=== PATIENT | male | born 1960 | race Caucasian/White ===

== ENCOUNTER 2020-10-06 01:36 | Outpatient (CLI) | payer OTHER, SELFPAY ==
[2020-10-06 21:18] LABS: SARS-CoV-2 RNA PCR Negative
== END 2020-10-06 01:37 | disposition home or self-care (01) ==
LOC: ANHCOVIDDT 01:37
PROVIDERS: PCP Family Medicine; Visit Provider Internal Medicine Gastroenterology
DX: Z01.812 Encounter for preprocedural laboratory examination (principal); Z20.828 Contact with and (suspected) exposure to other viral communicable diseases
CPT/HCPCS: 87635; C9803; U0003

== ENCOUNTER 2020-10-10 01:37 | Day surgery (SDC) | payer OTHER, SELFPAY ==
[2020-10-04 14:45] VITALS: BMI 37.2
[2020-10-10 06:24] VITALS: BP 116/59; PULSE 89; RESP 16; TEMP 36.7; O2SAT 96; BMI 37.4
[2020-10-10] MEDS: LACTATED RINGERS 1,000 ML 150 ML IV CONT ×2 (06:38→07:56)
--- NOTE | 2020-10-10 06:47 | WPDANESEPPF ---
Anes - Initial Pre Proc Eval Procedure: Operation Date: 10/10/20 07:30 Proposed Procedures p Screening Colonoscopy - Juan R Pablo MD Date/Time: 10/10/20 06:47 Surgeon: Juan R Pablo MD Pre Op Diagnosis: Neoplasm Screening Patient Data Age: 59 Gender: M Height: 1.85 m Weight: 128.6 kg Last Vital Signs Temp 36.7 C 10/10/20 06:24 Pulse 89 10/10/20 06:24 Resp 16 10/10/20 06:24 BP 116/59 L 10/10/20 06:24 Pulse Ox 96 10/10/20 06:24 Allergies Allergy/AdvReac Type Severity Reaction Status Date / Time No Known Allergies Allergy Verified 10/10/20 06:23 Home Medications Medication Instructions Recorded Confirmed Type carvedilol phosphate 40 mg 40 mg PO DAILY #90 cap 10/26/19 10/04/20 Rx capsule,[id number] multiphase pen needle, diabetic 32 gauge x #200 each 01/02/20 Rx allopurinol 100 mg tablet 100 mg PO DAILY #90 tablet 03/26/20 10/04/20 Rx lancets #102 each 04/09/20 Rx blood sugar diagnostic #100 each 04/17/20 Rx tamsulosin 0.4 mg capsule 0.4 mg PO DAILY #90 cap 04/24/20 10/04/20 Rx atorvastatin 10 mg tablet See Rx Instructions .ROUTE 04/30/20 10/04/20 Rx .COMPLEX #90 tablet chlorthalidone 25 mg tablet 25 mg PO DAILY #90 tablet 05/23/20 10/04/20 Rx dulaglutide 0.75 mg/0.5 mL 0.75 mg SUB-Q WEEKLY #2 ml 08/07/20 10/04/20 Rx subcutaneous pen injector metformin 500 mg tablet,extended 2,000 mg PO QPM #360 tablet 08/13/20 10/04/20 Rx release 24hr insulin degludec 200 unit/mL (3 40 unit SUB-Q DAILY #18 ml 08/14/20 10/04/20 Rx mL) subcutaneous pen polyethylene glycol 3350 17 gram 238 g PO ONCE #1 each 08/15/20 Rx oral powder packet lisinopril 40 mg tablet 40 mg PO DAILY #90 tablet 09/05/20 10/04/20 Rx loratadine [Claritin] 10 mg PO DAILY 10/04/20 10/04/20 History Patient hx anesthesia problems: none Family hx anesthesia problems: none PMFSH Past Medical History Medical History (Updated 10/10/20 @ 06:48 by Dylan Simth MD) Benign prostatic hyperplasia with urinary frequency Controlled diabetes mellitus Dyslipidemia Essential (primary) hypertension History of atrial flutter Obesity Obstructive sleep apnea (adult) (pediatric) Single current episode of major depressive disorder Surgical History Surgical History History of pilonidal cyst History of retinal detachment Family History Family History Father Hypertension Family history of heart disease in male family member before age 55 Sibling Cerebrovascular accident Mother Family history of diabetes mellitus in first degree relative Social History Social History Smoking status: Never smoker Second hand tobacco smoke exposure: No Alcohol intake: current Drinks per week: 1 Substance use: never Substance use type: does not use Living arrangements: with family Gender identity (if verbalized by the patient): Male Spiritual care concerns: No Anes - Eval Final PreProcedure Day of Procedure 10/10/20 06:47 Patient weight: obese Heart: regular rate and rhythm Lungs: clear to auscultation and normal air movement Airway: Mallampati scale class II Neurological: alert and oriented Last oral intake: >/= 8 hours ASA classification: III Emergent: no Anesthetic plan: proceed Anesthesia type and monitoring: general GIVS Informed Consent: The patient's anesthetic plan and its attendant risks and benefits were discussed with the patient/family/POA. Questions were solicited and answers provided to the satisfaction of the patient/family/POA.
[2020-10-10 07:15] LABS: Glucose Point of Care 135 (65-105)
--- NOTE | 2020-10-10 07:36 | PM.HPGS ---
History of Present Illness History of Present Illness Consent: Risks, benefits, and alternatives have been discussed and questions answered. Patient agrees to proceed with procedure. Chief complaint: Neoplasm Screening Narrative: Bruce Vasquez is a 59 year old male here for screening colonoscopy, last one 10 years ago. Review of Systems Constitutional: Constitutional: Denies headache(s) and Denies weakness Eyes: Eyes: Denies blurry vision ENT: Reports Normal hearing present, Denies headache(s) and Denies neck pain Cardiovascular: Cardiovascular: Denies chest pain and Denies dyspnea Respiratory: Respiratory: Denies dyspnea Gastrointestinal: Gastrointestinal: Reports no additional gastrointestinal complaints Genitourinary: Genitourinary: Denies dysuria Musculoskeletal: Musculoskeletal: Denies neck pain Integumentary/Breasts: Skin/Breast: Denies dry skin Neurologic: Reports Normal hearing present, Denies headache(s) and Denies weakness Psychiatric: Psychiatric: Denies anxiety Endocrine: Endocrine: Denies change in body appearance Hematologic/Lymphatic: Hematologic/Lymphatic: Denies easy bleeding Allergic/Immunologic: Allergic/Immunologic: Denies urticaria PMFSH Past Medical History Medical History (Updated 10/10/20 @ 07:37 by Juan R Pablo MD) Benign prostatic hyperplasia with urinary frequency Colon cancer screening Controlled diabetes mellitus Dyslipidemia Essential (primary) hypertension History of atrial flutter Obesity Obstructive sleep apnea (adult) (pediatric) Single current episode of major depressive disorder Surgical History Surgical History History of pilonidal cyst History of retinal detachment Family History Family History Father Hypertension Family history of heart disease in male family member before age 55 Sibling Cerebrovascular accident Mother Family history of diabetes mellitus in first degree relative Social History Social History Smoking status: Never smoker Second hand tobacco smoke exposure: No Alcohol intake: current Drinks per week: 1 Substance use: never Substance use type: does not use Living arrangements: with family Gender identity (if verbalized by the patient): Male Spiritual care concerns: No Meds Home Medications and Allergies Home Medications Medication Instructions Recorded Confirmed Type carvedilol phosphate 40 mg 40 mg PO DAILY #90 cap 10/26/19 10/04/20 Rx capsule,ext.[id number] multiphase pen needle, diabetic 32 gauge x #200 each 01/02/20 Rx 5/32 allopurinol 100 mg tablet 100 mg PO DAILY #90 tablet 03/26/20 10/04/20 Rx lancets #102 each 04/09/20 Rx blood sugar diagnostic #100 each 04/17/20 Rx tamsulosin 0.4 mg capsule 0.4 mg PO DAILY #90 cap 04/24/20 10/04/20 Rx atorvastatin 10 mg tablet See Rx Instructions .ROUTE 04/30/20 10/04/20 Rx .COMPLEX #90 tablet chlorthalidone 25 mg tablet 25 mg PO DAILY #90 tablet 05/23/20 10/04/20 Rx dulaglutide 0.75 mg/0.5 mL 0.75 mg SUB-Q WEEKLY #2 ml 08/07/20 10/04/20 Rx subcutaneous pen injector metformin 500 mg tablet,extended 2,000 mg PO QPM #360 tablet 08/13/20 10/04/20 Rx release 24hr insulin degludec 200 unit/mL (3 40 unit SUB-Q DAILY #18 ml 08/14/20 10/04/20 Rx mL) subcutaneous pen polyethylene glycol 3350 17 gram 238 g PO ONCE #1 each 08/15/20 Rx oral powder packet lisinopril 40 mg tablet 40 mg PO DAILY #90 tablet 09/05/20 10/04/20 Rx loratadine [Claritin] 10 mg PO DAILY 10/04/20 10/04/20 History Allergies Allergy/AdvReac Type Severity Reaction Status Date / Time No Known Allergies Allergy Verified 10/10/20 06:23 Vital Signs Vital Signs - 24 hr 10/10/20 06:24 Temperature 98.1 F Pulse Rate 89 Respiratory Rate 16 Blood Pressure 116/59 L Pulse Oximetry 96 Ex
[2020-10-10 08:01] VITALS: BP 93/56; PULSE 73; RESP 16; O2SAT 95
[2020-10-10 08:11] VITALS: BP 91/66; PULSE 74; RESP 16; O2SAT 98
[2020-10-10 08:21] VITALS: BP 108/64; PULSE 70; RESP 16; O2SAT 100
== END 2020-10-10 08:34 | disposition home or self-care (01) ==
PROVIDERS: PCP Family Medicine; Visit Provider Internal Medicine Gastroenterology
PROC: 0DJD8ZZ Inspection of Lower Intestinal Tract, Via Natural or Artificial Opening Endoscopic (ICD-10-PCS; CPT 45378; principal; 2020-10-10 07:30)
DX: Z12.11 Encounter for screening for malignant neoplasm of colon (principal); D12.2 Benign neoplasm of ascending colon; K57.30 Diverticulosis of large intestine without perforation or abscess without bleeding; E11.9 Type 2 diabetes mellitus without complications; I10 Essential (primary) hypertension; N40.1 Benign prostatic hyperplasia with lower urinary tract symptoms; R35.0 Frequency of micturition; G47.33 Obstructive sleep apnea (adult) (pediatric); F32.9 Major depressive disorder, single episode, unspecified; Z79.4 Long term (current) use of insulin; Z79.84 Long term (current) use of oral hypoglycemic drugs; E66.9 Obesity, unspecified; Z68.37 Body mass index [BMI] 37.0-37.9, adult
CPT/HCPCS: 45385; 87635; 88305; C9803; J7120; U0003

== ENCOUNTER 2021-06-06 10:49 | Outpatient (CLI) | payer OTHER, SELFPAY ==
--- NOTE | ~2021-06-06 | XR_ITS ---
XR foot LT min 3V DATE: 06/06/2021 11:04 INDICATION: Left foot pain. Bruising at ball of foot. TECHNIQUE: 4 views COMPARISON: None FINDINGS: Moderate plantar calcaneal enthesopathy. Osteoarthritic change at the tibiotalar joint. Mild osteoarthritis at the first metatarsophalangeal joint. No fracture, dislocation, periosteal reaction or bone destruction. 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
== END 2021-06-06 10:50 | disposition home or self-care (01) ==
LOC: ANHIMG 10:52
PROVIDERS: PCP Family Medicine; Visit Provider Nurse Practitioner Family
DX: M77.32 Calcaneal spur, left foot (principal); M19.072 Primary osteoarthritis, left ankle and foot
CPT/HCPCS: 73630

== ENCOUNTER 2022-05-01 23:55 | Inpatient (IN) | payer OTHER, SELFPAY ==
--- NOTE | ~2022-05-01 | XR_ITS ---
EXAMINATION: XR chest 2V DATE: 05/02/2022 00:49 INDICATION: Palpitations. TECHNIQUE: Frontal and lateral views of the chest were obtained. COMPARISON: Chest 2 views 01/30/2017 FINDINGS: There is mild atelectasis in left lower lung zone. No pleural effusion or pneumothorax. The heart size is normal. IMPRESSION: 1. Mild atelectasis in left lower lung zone. Reviewed, dictated and finalized at location A.
[2022-05-01 23:56] VITALS: BP 126/78; PULSE 69; RESP 18; TEMP 36.6; O2SAT 98
[2022-05-02] VITALS (20 sets, daily range): BP systolic 103–153; BP diastolic 64–80; PULSE 69–132; RESP 13–20; TEMP 36.1–37.2; O2SAT 94–97; BMI 37.0; BMI 37.2
--- NOTE | 2022-05-02 | ECHO_ITS ---
Patient Info Name: Bruce Vasquez Age: 61 years : 1960 Gender: Male Ht: 73 in Wt: 280 lbs BSA: 2.60 m2 HR: 96 bpm BP: 153 / 66 mmHg Heart Rhythm: Atrial Fibrillation Technical Quality: Fair Exam Date: 05/02/2022 7:30 AM Exam Location: [facility] Patient Status: Outpatient Admit Date: 05/02/2022 Staff Ordering Physician: Florencia Guerrier DO Forester Aide: Lisha Ritter RDCS Attending Provider: Florencia Guerrier DO Referring Physician: Chey PATTERSON; Exam Type: CA echo dop color flow w con Study Info Indications - afib Complete two-dimensional, color flow and Doppler transthoracic echocardiogram is performed with contrast to opacify the left ventricle and to improve the deliniation of the left ventricle endocardial borders. Contrast/Agitated Saline Contrast/Ag. Saline: Definity Amount: 3.00 ml Administered By: Lisha Ritter RDCS Existing IV Access: Yes IV Access Condition: patent with no signs of infiltration Summary 1. Definity contrast used to improve visualization. 2. Left ventricular systolic function is normal, estimated at 65-70%. 3. Left atrial chamber dimension is normal. 4. Right atrial chamber dimension is normal. 5. There is trace mitral valve regurgitation. Left Ventricle Left ventricular chamber dimension is normal. Left ventricular systolic function is normal, estimated at 65-70%. The left ventricular diastolic function is normal. Definity contrast used to improve visualization. Right Ventricle Right ventricular chamber dimension is normal. Left Atria Left atrial chamber dimension is normal. Right Atria Right atrial chamber dimension is normal. Aortic Valve The aortic valve is normal. Pulmonic Valve The pulmonic valve is not well visualized. Mitral Valve The mitral valve has normal leaflets. There is trace mitral valve regurgitation. The mitral valve annulus is mildly calcified. Tricuspid Valve The tricuspid valve leaflets are normal. Pericardium/Pleural The pericardium appears normal. Aorta The aortic root size at the sinus of Valsalva is normal. Left Ventricular Outflow Tract Name Value Normal LVOT 2D LVOT Diameter 2.12 cm LVOT Doppler LVOT Peak Gradient 6 mmHg LVOT Mean Gradient 3 mmHg LVOT VTI 20.54 cm LVOT VTI/AV VTI Ratio 0.85 LVOT Stroke Volume 72.52 ml LVOT CO 6.87 l/min LVOT CI 2.64 L/min/m2 Pulmonic Valve Name Value Normal RVOT Doppler RVOT Peak Gradient 1 mmHg PV Doppler PV Peak Gradient
--- NOTE | 2022-05-02 00:01 | ECG_ITS ---
Measurements Intervals [place] Rate: 132 P: OR: 0 QRS: -57 QRSD: 117 T: 85 QT: 300 QTc: 446 Interpretive Statements ATRIAL FIBRILLATION WITH RAPID VENTRICULAR RESPONSE LEFT ANTERIOR FASCICULAR BLOCK [QRS AXIS <= -45, QR IN I, RS IN II] MODERATE VOLTAGE CRITERIA FOR LVH, CONSIDER NORMAL VARIANT [MEETS CRITERIA IN ONE OF: R(aVL), S(V1), R(V5), R(V5/V6)+S(V1)] NONSPECIFIC T-WAVE ABNORMALITY NO PREVIOUS ECG AVAILABLE FOR COMPARISON Electronically Signed On 05-02-2022 14:06:23 CDT by Todd Olsen M.D.
--- NOTE | 2022-05-02 00:30 | ED.ARRPALP ---
HPI - Arrhythmia/Palpitations General Chief Complaint: Arrhythmia/Palpitations Stated Complaint: palpitations Time Seen by Provider: 05/02/22 00:19 Source: patient History of Present Illness HPI narrative: Patient presents with palpitations. Patient ports symptoms started around 7:00 this evening while he was at dinner they have persisted throughout the evening so he came to the ER for further evaluation. Reports he feels like his heart is racing denies any lightheadedness or dizziness denies any fevers, cough, congestion. Denies any chest pain, nausea, vomiting, diarrhea. Reports he had a similar event approximately 5 years ago and presented after a couple days of symptoms was admitted and had a cardioversion. Outpatient evaluation by cardiology however symptoms never returned so he does not currently see a knot bumper. Related Data Home Medications Medication Instructions Recorded Confirmed loratadine 10 mg tablet (Claritin) 10 mg PO DAILY 10/04/20 04/16/22 allopurinol 100 mg tablet 200 mg PO DAILY 05/02/22 05/02/22 atorvastatin 10 mg tablet 10 mg PO DAILY 05/02/22 05/02/22 carvedilol phosphate 40 mg 40 mg PO DAILY 05/02/22 05/02/22 capsule,[id number] multiphase dulaglutide 0.75 mg/0.5 mL 0.75 mg subcut WEEKLY 05/02/22 05/02/22 subcutaneous pen injector ([facility]) Allergies Allergy/AdvReac Type Severity Reaction Status Date / Time No Known Allergies Allergy Verified 05/02/22 00:57 Review of Systems Review of Systems: CONSTITUTIONAL: Denies fever, chills, or sweats. EYES: Denies visual changes, redness, or discharge. ENT: Denies rhinorrhea, congestion, sore throat, or otalgia. CARDIOVASCULAR: Denies chest pain, or edema. RESPIRATORY: Denies cough or dyspnea. GASTROINTESTINAL: Denies abdominal pain, nausea, vomiting, or diarrhea. GENITOURINARY: Denies dysuria or hematuria. SKIN: Denies rash or itching. MUSCULOSKELETAL: Denies back pain, joint pain, or myalgia. NEUROLOGIC: Denies headache, numbness, dizziness, or weakness. PSYCHIATRIC: Denies anxiety or depression. [facility] Past Medical History Medical History Benign prostatic hyperplasia with urinary frequency Colon cancer screening Controlled diabetes mellitus Dyslipidemia Essential (primary) hypertension History of atrial flutter Obesity Obstructive sleep apnea (adult) (pediatric) Single current episode of major depressive disorder Surgical History Surgical History History of pilonidal cyst History of retinal detachment Family History Family History Father Hypertension Family history of heart disease in male family member before age 55 Sibling Cerebrovascular accident Mother Family history of diabetes mellitus in first degree relative Social History Social History Social History: Smoking status: Never smoker Second hand tobacco smoke exposure: No Alcohol intake: current Alcohol use details: holidays Substance use: never Substance use type: does not use Gender identity (if verbalized by the patient): Male Sexual Orientation (if Verbalized by the Patient): Straight or Heterosexual Spiritual care concerns: No Exam Narrative: GENERAL: Well-appearing, well-nourished, and in no acute distress. HEAD: Normocephalic, atraumatic. EYES: PERRLA and EOMI. ENT: Nares clear, no rhinorrhea or epistaxis. Mucous membranes moist. NECK: Supple. No masses. No JVD CHEST: Clear to auscultation. No respiratory distress. No wheezes rales or rhonchi HEART: Regular tachycardia no murmur heard. Normal peripheral pulses. ABDOMEN: Soft, nontender, nondistended, normal active bowel sounds. EXTREMITIES: Normal range of motion. No edema. SKIN: Warm, dry, no rash. NEURO: No focal deficits. Alert and oriented x3
[2022-05-02 00:35] LABS: Alanine Aminotransferase 27 U/L (6-50); Albumin Level 4.3 g/dL (3.5-5.1); Alkaline Phosphatase 64 U/L (38-126); Anion Gap 6 mmol/L (8-16); Aspartate Amino Transferase 27 U/L (17-59); Bilirubin,Total 0.5 mg/dL (0.2-1.3); Blood Urea Nitrogen 18 mg/dL (9-20); Calcium 9.2 mg/dL (8.4-10.2); Carbon Dioxide 32 mmol/L (22-30); Chloride 100 mmol/L (98-107); Estimated CRCL calculation 95 ml/min; Estimated Glomerular Filt Rate > 60; Glucose 122 mg/dL (65-110); Lipase 249 U/L (23-300); Potassium 3.2 mmol/L (3.4-5.0); Sodium 138 mmol/L (137-145)
[2022-05-02 00:41] LABS: Prothrombin Time 12.8 Seconds (11.1-14.7)
[2022-05-02 00:42] LABS: Partial Thromboplastin Time 24.5 SECONDS (22.3-36.8)
[2022-05-02 00:47] LABS: Troponin I < 0.012 ng/mL (0.000-0.034)
[2022-05-02] MEDS: ASPIRIN 81 MG CHEWABLE TABLET 324 MG PO (00:48)
[2022-05-02] MEDS: SODIUM CHLORIDE 0.9% IV 1,000 ML 999 ML IV CONT (00:49)
[2022-05-02] MEDS: METOPROLOL TARTRATE INJ 5 MG/5 ML VIAL IV PUSH (00:52)
[2022-05-02 00:55] LABS: Basophils Absolute Auto 0.1 K/mm3 (0.0-0.1); Basophils Percent Auto 0.6 % (0.2-1.2); Eosinophils Absolute Auto 0.2 K/mm3 (0-0.3); Hematocrit 43.4 % (42.0-52.0); Hemoglobin 15.1 g/dL (14.0-18.0); Immature Granulocyte Absolute 0.03 K/mm3 (0.00-0.031); Immature Granulocyte Percent A 0.4 % (0-0.5); Lymphocytes Absolute Auto 2.42 K/mm3 (0.9-3.2); Lymphocytes Percent Auto 29.9 % (18.3-44.2); Mean Corpuscular HGB Conc 34.8 g/dl (32-36); Mean Corpuscular Hemoglobin 30.4 pg (26-34); Mean Corpuscular Volume 87.5 fl (80-100); Mean Platelet Volume 9.3 fl (7.4-10.4); Monocytes Absolute Auto 1.1 K/mm3 (0.1-0.6); Monocytes Percent Auto 13.2 % (2.6-8.5); Neutrophils Absolute Auto 4.3 K/mm3 (1.3-6.7); Neutrophils Percent Auto 52.9 % (45.5-73.1); Platelet Count Result 259 k/mm3 (150-375); Red Blood Count 4.96 M/mm3 (4.6-6.20); Red Cell Distribution Width 13.9 % (11.5-14.5); White Blood Count 8.1 K/mm3 (4.5-10.0)
[2022-05-02] MEDS: dilTIAZem HCl INJ 25 MG/5 ML VIAL 10 MG IV PUSH (02:18)
[2022-05-02] MEDS: dilTIAZem 100 MG/100 ML 100 MG/100 ML BAG IV CONT (02:21)
[2022-05-02] MEDS: POTASSIUM CHLORIDE 20 MEQ PACKET (FOR LIQUID) 40 MEQ PO (04:36)
--- NOTE | 2022-05-02 05:31 | ADMGEN ---
This patient, Bruce Vasquez, was admitted to IMU Room 200-01 at 0530. Patient/family oriented to hospital policies and general routines including ID bracelet, bed and alarms, visiting hours, pain management, procedures, bathroom and other care routines, personal items, smoking policy, room service/diet, and visiting hours. Information on how to activate the Rapid Response Team has been discussed. Patient/Family are encouraged to report perceived risks to care and to ask questions if they do not understand what they are told or what they should do.
--- NOTE | 2022-05-02 07:42 | PM.IMHP ---
H&P: HPI History of Present Illness Date/Time: 05/02/22 07:42 Chief Complaint: Palpitations Narrative: 61-year-old male with past medical history significant for hypertension, hyperlipidemia, diabetes, BPH, JONELLE is presenting with palpitations. He states about 5 years ago he had an episode of atrial fibrillation the resolved with cardioversion. 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 He states he was at dinner when he suddenly felt fluttering in his chest. Started at 7:30 p.m. by 11:00 p.m. he was continuing and so he went to the ER. He denies any associated shortness of breath or chest pain. He states he did feel it bit ?off. He denies nausea vomiting or diarrhea. No fevers or chills. He states during the day he did his usual 16 mi bike ride and also washed his car otherwise there were no changes in his routine. Review of Systems Review of Systems: Twelve point review of systems was reviewed and is negative except as noted in the HPI [facility] Past Medical History Medical History Benign prostatic hyperplasia with urinary frequency Colon cancer screening Controlled diabetes mellitus Dyslipidemia Essential (primary) hypertension History of atrial flutter Obesity Obstructive sleep apnea (adult) (pediatric) Single current episode of major depressive disorder Surgical History Surgical History History of pilonidal cyst History of retinal detachment Family History Family History Father Hypertension Family history of heart disease in male family member before age 55 Sibling Cerebrovascular accident Mother Family history of diabetes mellitus in first degree relative Social History Social History Social History: Smoking status: Never smoker Second hand tobacco smoke exposure: No Alcohol intake: current Alcohol use details: holidays Substance use: never Substance use type: does not use Gender identity (if verbalized by the patient): Male Sexual Orientation (if Verbalized by the Patient): Straight or Heterosexual Spiritual care concerns: No Meds Home Medications and Allergies Home Medications Medication Instructions Recorded Confirmed Type loratadine 10 mg tablet (Claritin) 10 mg PO DAILY 10/04/20 05/02/22 History tamsulosin 0.4 mg capsule 0.8 mg PO QHS #180 caps 08/14/21 05/02/22 Rx chlorthalidone 25 mg tablet 25 mg PO DAILY #90 tabs 01/01/22 05/02/22 Rx metformin 500 mg tablet,extended 2,000 mg PO QPM #360 tabs 01/01/22 05/02/22 Rx release 24hr lisinopril 40 mg tablet 40 mg PO DAILY #90 tabs 02/20/22 05/02/22 Rx insulin degludec 200 unit/mL (3 40 unit (0.2 mL) subcut DAILY #18 02/25/22 05/02/22 Rx mL) subcutaneous pen (Tresiba mL FlexTouch U-200 insulin) allopurinol 100 mg tablet 200 mg PO DAILY 05/02/22 05/02/22 History atorvastatin 10 mg tablet 10 mg PO DAILY 05/02/22 05/02/22 History carvedilol phosphate 40 mg 40 mg PO DAILY 05/02/22 05/02/22 History capsule,[id number] multiphase dulaglutide 0.75 mg/0.5 mL 1.5 mg subcut WEEKLY 05/02/22 05/02/22 [facility] Allergies Allergy/AdvReac Type Severity Reaction Status Date / Time No Known Allergies Allergy Verified 05/02/22 00:57 Vital Signs Vital Signs - 24 hr 05/01/22 23:56 05/02/22 00:14 05/02/22 00:52 Temperature 97.8 F Pulse Rate 69 132 H 120 H Respiratory Rate 18 Blood Pressure 126/78 Pulse Oximetry 98 Oxygen Delivery Room Air 05/02/22 02:21 05/02/22 02:40 05/02/22 02:56 Temperature Pulse Rate 112 H 106 H 110 H Respiratory Rate 18 Blood Pressure 117/70 122/64 122/79 Pulse Oximetry 96 Oxygen Delivery 05/02/22 03
[2022-05-02] MEDS: PERFLUTREN LIPID MICROSPHERES 1.5 ML VIAL DILUTED TO 10 ML TOTAL VOLUME IV PUSH (07:50)
[2022-05-02] MEDS: lisinopriL 20 MG TABLET 40 MG PO (08:57)
[2022-05-02] MEDS: LORATADINE 10 MG TABLET PO (08:59)
[2022-05-02] MEDS: CHLORTHALIDONE 25 MG TABLET PO (09:00)
[2022-05-02] MEDS: ATORVASTATIN 10 MG TABLET PO (09:01)
[2022-05-02] MEDS: POTASSIUM PHOS/SODIUM PHOS 250 MG TABLET PO (09:37)
[2022-05-02] MEDS: POTASSIUM CHLORIDE 20 MEQ TABLET 40 MEQ PO (09:39)
[2022-05-02 10:08] LABS: Troponin I < 0.012 ng/mL (0.000-0.034)
--- NOTE | 2022-05-02 11:04 | PM.CNCAR ---
Assessment and Plan Assessment and plan (1) Atrial fibrillation with RVR: Code(s): I48.91 - Unspecified atrial fibrillation Status: Acute Plan This is a 61-year-old gentleman with: A prior history of atrial arrhythmias in the setting of dehydration/volume depletion 5 years ago. After being anticoagulated for couple of years medication was withdrawn. He had no other cardiac history and no evidence of structural heart disease on echo at that time. He now has a symptomatic recurrence of atrial fibrillation. He provides a very good history at this suddenly began last evening while he was out to dinner with his . He came to the hospital short time later he is now rate controlled and receiving IV diltiazem at this point since he has had a symptomatic recurrence of atrial fib I am going to recommend initiating antiarrhythmic therapy with sotalol I will replace his carvedilol with this at this time and will anticoagulate him again with apixaban. Hopefully with sotalol he will medically convert to sinus rhythm if he does not we will proceed with electrical cardioversion probably on Thursday if he does convert medically he can be discharged over the weekend in my opinion Todd Olsen MD [facility] History of Present Illness History of Present Illness Consult date/time: 05/02/22 11:04 Consult reason: atrial fibrillation Reason For Visit: afib with rvr Narrative: This is a 61-year-old man I am seeing at the request of the hospitalist for assistance with the evaluation and management of atrial fibrillation. The patient is known to me from the past with a history of atrial arrhythmias. He has not been seen in the office for several years [place] he has not had any problems. The patient was in his usual state of fairly good health when yesterday he was performing some manual labor activities about the house that are a bit more than usual he states he washed and waxed his truck he then went on a 16 mi bicycle ride with his which is not unusual for him he states they do that several times per week for exercise. He then noticed later in the day that he was feeling a bit unwell and had the idea to check his pulse he noticed that his heart rate was rapid and irregular. He was out for dinner with his he came home later after returning from dinner and checked his pulse with his pulse oximeter and noted that it was rapid and chaotic he then decided to come into the emergency room where he was found to be in atrial fib with RVR. He was given some metoprolol which transiently slowed his heart rhythm he was then placed on IV diltiazem which did provide good rate control he was then admitted to the hospital. He has been given 1 dose of prophylactic dose of Lovenox but he has not been therapeutically anticoagulated from what I can see he is asymptomatic with IV diltiazem running and feels well at this time. He does have a history of atrial arrhythmias with a previous history of atrial flutter for which we saw him in January of 2017. At that time it was felt to be concurrent with a gastrointestinal illness he had a lot of vomiting and dehydration leading up to that and electrolyte disturbances. He was electrically cardioverted back to sinus rhythm was treated with anticoagulation for a couple of years we again saw him in February of 2019 at which time all of his medication was withdrawn in hopes that he would not require ongoing/lifelong anticoagulation. His workup previously did not show any structural heart disease or valvular abnormalities in this setting he is being seen again in consultation. Review of Systems Constitutional: Constitutional: Reports no additional constitutional complaints Eyes: Eyes: Reports no additional eye complaints ENT: Reports system reviewed and no additional complaints, except as documented Cardiovascular: Cardiovascular: Reports palpitations Respiratory: Respiratory: Reports no additional respiratory complaints
[2022-05-02] MEDS: APIXABAN 5 MG TABLET PO ×2 (12:23→21:56)
[2022-05-02] MEDS: SOTALOL HCL 80 MG TABLET PO ×2 (12:23→21:57)
[2022-05-02 12:44] LABS: Glucose Point of Care 139 mg/dl (65-105)
[2022-05-02] MEDS: TAMSULOSIN HCL 0.4 MG CAPSULE 0.8 MG PO (21:48)
[2022-05-02] MEDS: allopurinoL 100 MG TABLET 200 MG PO (21:57)
[2022-05-02 22:07] LABS: Glucose Point of Care 122 mg/dl (65-105)
[2022-05-02] MEDS: ACETAMINOPHEN 325 MG TABLET 650 MG PO (22:29)
[2022-05-02] MEDS: INSULIN GLARGINE (*BKC) 100 UNITS/ML 32 UNITS SUB-Q (22:29)
[2022-05-03] VITALS (21 sets, daily range): BP systolic 107–144; BP diastolic 70–87; PULSE 65–149; RESP 16–20; TEMP 36.2–36.9; O2SAT 95–100
--- NOTE | 2022-05-03 | ECG_ITS ---
Measurements Intervals [place] Rate: 76 P: IN: 0 QRS: -54 QRSD: 122 T: 50 QT: 420 QTc: 474 Interpretive Statements ATRIAL FIBRILLATION POSSIBLE RIGHT VENTRICULAR CONDUCTION DELAY [RSR (QR) IN V1/V2] LEFT ANTERIOR FASCICULAR BLOCK [QRS AXIS <= -45, QR IN I, RS IN II] MODERATE VOLTAGE CRITERIA FOR LVH, CONSIDER NORMAL VARIANT [MEETS CRITERIA IN ONE OF: R(aVL), S(V1), R(V5), R(V5/V6)+S(V1)] POSSIBLE ANTERIOR MYOCARDIAL INFARCTION [30 ms Q WAVE IN V3/V4, OR R < 0.2 mV IN V4], OF INDETERMINATE AGE ABNORMAL COMPARED TO ECG 05/02/2022 00:10:55 NO SIGNIFICANT CHANGES Electronically Signed On 05-03-2022 13:44:28 CDT by Christian Buchanan M.D.
[2022-05-03 00:45] LABS: Glucose Point of Care 191 mg/dl (65-105)
[2022-05-03 05:49] LABS: Hematocrit 44.1 % (42.0-52.0); Hemoglobin 15.2 g/dL (14.0-18.0); Mean Corpuscular HGB Conc 34.5 g/dl (32-36); Mean Corpuscular Hemoglobin 30.3 pg (26-34); Mean Corpuscular Volume 87.8 fl (80-100); Mean Platelet Volume 9.5 fl (7.4-10.4); Platelet Count Result 237 k/mm3 (150-375); Red Blood Count 5.02 M/mm3 (4.6-6.20); White Blood Count 6.5 K/mm3 (4.5-10.0)
[2022-05-03 05:59] LABS: Alanine Aminotransferase 24 U/L (6-50); Alkaline Phosphatase 54 U/L (38-126); Anion Gap 6 mmol/L (8-16); Aspartate Amino Transferase 23 U/L (17-59); Blood Urea Nitrogen 14 mg/dL (9-20); Calcium 8.8 mg/dL (8.4-10.2); Carbon Dioxide 30 mmol/L (22-30); Chloride 104 mmol/L (98-107); Estimated CRCL calculation 105 ml/min; Estimated Glomerular Filt Rate > 60; Glucose 126 mg/dL (65-110); Potassium 3.6 mmol/L (3.4-5.0); Sodium 140 mmol/L (137-145)
[2022-05-03 07:54] LABS: Glucose Point of Care 139 mg/dl (65-105)
[2022-05-03] MEDS: APIXABAN 5 MG TABLET PO ×2 (09:01→20:25)
[2022-05-03] MEDS: lisinopriL 20 MG TABLET 40 MG PO (09:01)
[2022-05-03] MEDS: LORATADINE 10 MG TABLET PO (09:01)
[2022-05-03] MEDS: CHLORTHALIDONE 25 MG TABLET PO (09:01)
[2022-05-03] MEDS: ATORVASTATIN 10 MG TABLET PO (09:01)
[2022-05-03] MEDS: SOTALOL HCL 80 MG TABLET PO ×2 (09:02→20:24)
--- NOTE | 2022-05-03 09:21 | PM.IMPN ---
Progress Note: A&P Assessment and Plan (1) Atrial fibrillation with RVR: Code(s): I48.91 - Unspecified atrial fibrillation Status: Acute Assessment and Plan: Cardizem drip weaned off, Cardiology consultation started sotalol as well as anticoagulation with Xarelto, if he converts to normal sinus he can be discharged, if not he will be cardioverted on Thursday. Because he is remaining in AFib with RVR, will discuss with Cardiology restarting Cardizem drip versus increasing oral medication dosages until he is able to be cardioverted. (2) Obstructive sleep apnea (adult) (pediatric): Code(s): G47.33 - Obstructive sleep apnea (adult) (pediatric) Status: Acute Assessment and Plan: Have respiratory therapy to titrate his CPAP to a lower level for this evening (3) Benign prostatic hyperplasia with urinary frequency: Code(s): N40.1 - Benign prostatic hyperplasia with lower urinary tract symptoms; R35.0 - Frequency of micturition Status: Acute (4) Dyslipidemia: Code(s): E78.5 - Hyperlipidemia, unspecified Status: Acute (5) Essential (primary) hypertension: Code(s): I10 - Essential (primary) hypertension Status: Acute (6) Controlled diabetes mellitus: Code(s): E11.9 - Type 2 diabetes mellitus without complications Status: Acute Assessment and Plan: Accu-Cheks with sliding scale insulin, controlled at home, A1c was 7 on April 04, 2022, all blood sugars under 180 here, well controlled (7) Obesity: Code(s): E66.9 - Obesity, unspecified Status: Acute Subjective Date/time seen: 05/03/22 09:21 Interval history: Patient is still in AFib, experiencing palpitations and flutters. He states he feels unwell, a little uncomfortable. Denies overt chest pain or shortness of breath. No nausea vomiting diarrhea. No fevers or chills. He does admit to feeling a little constipated, he thinks it is because his metformin is being held. Patient also noted that his CPAP was unbearable with high pressures making him unable to wear it. He is requesting respiratory therapy titrate it to a lower level so he can wear it tonight. Review of Systems Review of Systems: Twelve point review of systems was reviewed and is negative except as noted in the HPI Exam Narrative: General: Patient resting comfortably in bed, no acute distress HEENT: Atraumatic, normocephalic, mucous membranes moist CV: Irregularly irregular, no obvious murmurs noted Lungs: Clear to auscultation bilaterally, no rales or crackles noted, no wheezes, good air entry Abdomen: Soft, nontender, nondistended Extremities: Normal to inspection, no edema noted Skin: No rashes noted, no lesions or wounds seen Psych: Euthymic, normal affect Neuro: Cranial nerves 2-12 grossly intact, strength 5/5 upper and lower extremities noted Objective Data Vital Signs Vital Signs: Vital Signs - 24 hr 05/02/22 10:00 05/02/22 12:23 05/02/22 12:00 Temperature 97.2 F L Pulse Rate 94 85 90 Respiratory Rate 20 Blood Pressure 115/71 Pulse Oximetry 96 Oxygen Delivery 05/02/22 12:00 05/02/22 12:00 05/02/22 14:00 Temperature Pulse Rate 83 83 83 Respiratory Rate Blood Pressure Pulse Oximetry 96 Oxygen Delivery Room Air 05/02/22 16:00 05/02/22 16:00 05/02/22 16:00 Temperature 97 F L Pulse Rate 73 73 75 Respiratory Rate 20 Blood Pressure 103/64 Pulse Oximetry 96 95 Oxygen Delivery Room Air 05/02/22 17:29 05/02/22 20:00 05/02/22 20:00 Temperature 98.9 F Pulse Rate 72 Respiratory Rate 20 Blood Pressure 111/65 Pulse Oximetry 97 Oxygen Delivery CPAP Room Air 05/02/22 21:57 05/02/22 23:30 05/03/22 00:00 Temperature 97.8 F Pulse Rate 82 65 Respiratory Rate 20 Blood Pressure 128/70 Pulse Oximetry 100 Oxygen Delivery Room Air 05/02/22 20:00 05/02/22 22:00 05/03/22 00:00 Temperature Pulse Rate 69 80 79 Respirato
[2022-05-03] MEDS: dilTIAZem 100 MG/100 ML 100 MG/100 ML BAG IV CONT (10:41)
--- NOTE | 2022-05-03 11:02 | ECG_ITS ---
Measurements Intervals [place] Rate: 111 P: VT: 0 QRS: -56 QRSD: 122 T: 72 QT: 354 QTc: 481 Interpretive Statements ATRIAL FIBRILLATION WITH RAPID VENTRICULAR RESPONSE POSSIBLE RIGHT VENTRICULAR CONDUCTION DELAY [RSR (QR) IN V1/V2] LEFT ANTERIOR FASCICULAR BLOCK [QRS AXIS <= -45, QR IN I, RS IN II] MODERATE VOLTAGE CRITERIA FOR LVH, CONSIDER NORMAL VARIANT [MEETS CRITERIA IN ONE OF: R(aVL), S(V1), R(V5), R(V5/V6)+S(V1)] ABNORMAL ECG COMPARED TO ECG 05/02/2022 22:58:07 NO SIGNIFICANT CHANGES Electronically Signed On 05-03-2022 13:47:33 CDT by Christian Buchanan M.D.
[2022-05-03 12:07] LABS: Glucose Point of Care 196 mg/dl (65-105)
--- NOTE | 2022-05-03 12:34 | PM.PNCARD ---
Progress Note: A&P Assessment and Plan (1) Atrial fibrillation with RVR: Code(s): I48.91 - Unspecified atrial fibrillation Status: Acute Assessment and Plan: A prior history of atrial arrhythmias in the setting of dehydration/volume depletion 5 years ago. Presents to the hospital witha recurrence of A fib. He was initiated on sotalol yesterday and remains in A fib. Diltiazem has been added for additional rate control Continue sotalol loading, he rec'd 3rd dose this morning QTc remains stable, 481 ms daily BMP check mag Continue diltiazem at 5mg/hr for now I spoke with him about possibility of requiring cardioversion if he does not chemically convert. He understands this. Continue a/c with Eliquis Time Spent With Patient Time with patient: 15 - 25 minutes Subjective Date/time seen: 05/03/22 12:34 Cardiology follow up for atrial fibrillation Remains in AF RVR, rate in 130's at times. He was placed on a diltiazem drip last night. Feels ok physically but is concerned and anxious that he is still in A fib. No shortness of breath, palpitations. Review of Systems Constitutional: Constitutional: Reports no additional constitutional complaints Eyes: Eyes: Reports no additional eye complaints ENT: Reports system reviewed and no additional complaints, except as documented Cardiovascular: Cardiovascular: Reports palpitations Respiratory: Respiratory: Reports no additional respiratory complaints Gastrointestinal: Gastrointestinal: Reports no additional gastrointestinal complaints Musculoskeletal: Musculoskeletal: Reports no additional musculoskeletal complaints Neurologic: Reports system reviewed and no additional complaints, except as documented Endocrine: Endocrine: Reports no additional endocrine complaints and Reports palpitations Hematologic/Lymphatic: Hematologic/Lymphatic: Reports no additional hematologic/lymphatic complaints Allergic/Immunologic: Allergic/Immunologic: Reports no additional allergic/immunologic complaints Exam Const: General: comfortable and no acute distress Other: Pleasant overweight gentleman no distress at all with IV diltiazem running HENMT: Mouth: Yes moist mucous membranes Eyes: Sclera: sclerae normal Pupils: Equal, round and reactive pupils present Neck: Neck: supple and no JVD Resp: Effort & Inspection: normal respiratory effort Auscultation: clear to auscultation bilaterally Cardio: Rate: tachycardic Rhythm: abnormal rhythm irregularly irregular GI: Auscultation: normal bowel sounds Skin: General skin exam: normal color Neuro: Cranial nerves: Yes Equal, round and reactive pupils present Extrem: General: normal to inspection Objective Data Vital Signs Vital Signs: Vital Signs - 24 hr 05/02/22 14:00 05/02/22 16:00 05/02/22 16:00 Temperature Pulse Rate 83 73 73 Respiratory Rate Blood Pressure Pulse Oximetry 96 Oxygen Delivery Room Air 05/02/22 16:00 05/02/22 17:29 05/02/22 20:00 Temperature 36.1 C L 37.2 C Pulse Rate 75 72 Respiratory Rate 20 20 Blood Pressure 103/64 111/65 Pulse Oximetry 95 97 Oxygen Delivery CPAP 05/02/22 20:00 05/02/22 21:57 05/02/22 23:30 Temperature Pulse Rate 82 Respiratory Rate Blood Pressure Pulse Oximetry Oxygen Delivery Room Air Room Air 05/03/22 00:00 05/02/22 20:00 05/02/22 22:00 Temperature 36.6 C Pulse Rate 65 69 80 Respiratory Rate 20 Blood Pressure 128/70 Pulse Oximetry 100 Oxygen Delivery 05/03/22 00:00 05/03/22 01:59 05/03/22 04:00 Temperature Pulse Rate 79 68 Respiratory Rate Blood Pressure Pulse Oximetry Oxygen Delivery Room Air 05/03/22 04:00 05/03/22 04:00 05/03/22 05:28 Temperature 36.2 C L Pulse Rate 87 109 H 80 Respiratory Rate 20 Blood Pressure 144/82 H Pulse Oximetry 98 Oxygen Delivery 05/03/22 08:00 05/03/22 09:02 05/03/22 10:41 Temperature 36.7 C Pulse Rate 11
[2022-05-03 13:01] LABS: Magnesium 1.7 mg/dL (1.6-2.3)
[2022-05-03 17:16] LABS: Glucose Point of Care 117 mg/dl (65-105)
[2022-05-03] MEDS: allopurinoL 100 MG TABLET 200 MG PO (20:24)
[2022-05-03] MEDS: TAMSULOSIN HCL 0.4 MG CAPSULE 0.8 MG PO (20:25)
[2022-05-03] MEDS: DOCUSATE SODIUM 100 MG CAPSULE PO (20:25)
[2022-05-03 20:56] LABS: Glucose Point of Care 138 mg/dl (65-105)
[2022-05-03] MEDS: INSULIN GLARGINE (*BKC) 100 UNITS/ML 32 UNITS SUB-Q (21:26)
--- NOTE | 2022-05-03 23:22 | ECG_ITS ---
Measurements Intervals [place] Rate: 81 P: ID: 0 QRS: -53 QRSD: 120 T: 45 QT: 408 QTc: 474 Interpretive Statements ATRIAL FIBRILLATION LEFT ANTERIOR FASCICULAR BLOCK [QRS AXIS <= -45, QR IN I, RS IN II] MODERATE VOLTAGE CRITERIA FOR LVH, CONSIDER NORMAL VARIANT [MEETS CRITERIA IN ONE OF: R(aVL), S(V1), R(V5), R(V5/V6)+S(V1)] POOR R-WAVE PROGRESSION ABNORMAL ECG Electronically Signed On 05-04-2022 11:05:15 CDT by Christian Buchanan M.D.
[2022-05-04] VITALS (18 sets, daily range): BP systolic 94–120; BP diastolic 65–76; PULSE 74–132; RESP 16–22; TEMP 36.2–36.6; O2SAT 95–100
[2022-05-04] MEDS: dilTIAZem 100 MG/100 ML 100 MG/100 ML BAG IV CONT ×2 (04:23→20:18)
[2022-05-04 08:02] LABS: Glucose Point of Care 127 mg/dl (65-105)
[2022-05-04 09:17] LABS: Anion Gap 9 mmol/L (8-16); Blood Urea Nitrogen 17 mg/dL (9-20); Calcium 8.7 mg/dL (8.4-10.2); Carbon Dioxide 27 mmol/L (22-30); Chloride 102 mmol/L (98-107); Estimated CRCL calculation 105 ml/min; Estimated Glomerular Filt Rate > 60; Glucose 124 mg/dL (65-110); Potassium 3.2 mmol/L (3.4-5.0); Sodium 138 mmol/L (137-145)
--- NOTE | 2022-05-04 09:17 | PM.IMPN ---
Progress Note: A&P Assessment and Plan (1) Atrial fibrillation with RVR: Code(s): I48.91 - Unspecified atrial fibrillation Status: Acute Assessment and Plan: Cardizem drip weaned off, Cardiology consultation started loading with sotalol as well as anticoagulation with Xarelto, if he chemically converts to normal sinus he can be discharged, if not he will be cardioverted on Thursday. Cardizem drip was weaned off on May 02, restarted on May 03 with continued tachycardia into the 130s 140s, currently running at 5 milligrams/hour, with a heart rate in the 80s. Will decrease dose to 2.5 milligrams/hour and reassess. Would recommend outpatient consultation with Cardiology to discuss ablation in the future as this is now his 2nd episode of AFib with RVR requiring cardioversion. (2) Obstructive sleep apnea (adult) (pediatric): Code(s): G47.33 - Obstructive sleep apnea (adult) (pediatric) Status: Acute Assessment and Plan: Respiratory therapy titrated to CPAP yesterday and he slept comfortably last night (3) Benign prostatic hyperplasia with urinary frequency: Code(s): N40.1 - Benign prostatic hyperplasia with lower urinary tract symptoms; R35.0 - Frequency of micturition Status: Acute (4) Dyslipidemia: Code(s): E78.5 - Hyperlipidemia, unspecified Status: Acute (5) Essential (primary) hypertension: Code(s): I10 - Essential (primary) hypertension Status: Acute (6) Controlled diabetes mellitus: Code(s): E11.9 - Type 2 diabetes mellitus without complications Status: Acute Assessment and Plan: Accu-Cheks with sliding scale insulin, controlled at home, A1c was 7 on April 04, 2022, all blood sugars under 180 here, well controlled (7) Obesity: Code(s): E66.9 - Obesity, unspecified Status: Acute Subjective Date/time seen: 05/04/22 09:17 Interval history: Patient resting comfortably without any complaints. No events overnight. He did continue to be tachycardic yesterday, so he was restarted on his Cardizem drip. He denies chest pain shortness a breath. No palpitations or fluttering. No complaints of weakness or lightheadedness. Review of Systems Review of Systems: Twelve point review of systems was reviewed and is negative except as noted in the HPI Exam Narrative: General: Patient resting comfortably in bed, no acute distress HEENT: Atraumatic, normocephalic, mucous membranes moist CV: Irregularly irregular, no obvious murmurs noted Lungs: Clear to auscultation bilaterally, no rales or crackles noted, no wheezes, good air entry Abdomen: Soft, nontender, nondistended Extremities: Normal to inspection, no edema noted Skin: No rashes noted, no lesions or wounds seen Psych: Euthymic, normal affect Neuro: Cranial nerves 2-12 grossly intact, strength 5/5 upper and lower extremities noted Objective Data Vital Signs Vital Signs: Vital Signs - 24 hr 05/03/22 10:41 05/03/22 10:00 05/03/22 12:00 Temperature 97.9 F Pulse Rate 121 H 115 H 108 H Respiratory Rate 16 Blood Pressure 107/71 Pulse Oximetry 95 Oxygen Delivery 05/03/22 12:00 05/03/22 14:00 05/03/22 16:00 Temperature 98.1 F Pulse Rate 108 H 127 H 90 Respiratory Rate 20 Blood Pressure 140/80 Pulse Oximetry 97 Oxygen Delivery 05/03/22 16:00 05/03/22 18:00 05/03/22 20:08 Temperature Pulse Rate 91 92 112 H Respiratory Rate Blood Pressure Pulse Oximetry 96 Oxygen Delivery Room Air 05/03/22 20:24 05/03/22 20:00 05/03/22 23:31 Temperature 97.6 F 98.5 F Pulse Rate 95 92 75 Respiratory Rate 20 20 Blood Pressure 107/87 119/72 Pulse Oximetry 100 100 Oxygen Delivery 05/03/22 23:51 05/03/22 20:00 05/03/22 22:00 Temperature Pulse Rate 79 72 Respiratory Rate 16 Blood Pressure Pulse Oximetry 97 Oxygen Delivery CPAP 05/04/22 00:00 05/04/22 02:00 05/04/22 04:23 Temperature Pul
--- NOTE | 2022-05-04 09:33 | PM.PNCARD ---
Progress Note: A&P Assessment and Plan (1) Atrial fibrillation with RVR: Code(s): I48.91 - Unspecified atrial fibrillation Status: Acute Assessment and Plan: A prior history of atrial arrhythmias in the setting of dehydration/volume depletion 5 years ago. Presents to the hospital witha recurrence of A fib. He was initiated on sotalol yesterday and remains in A fib. Diltiazem has been added for additional rate control Continue sotalol loading, he rec'd 3rd dose this morning QTc remains stable, 474 daily BMP check mag Continue diltiazem at 5mg/hr for now Will keep him NPO for elective cardioversion tomorrow. Will also replace his potassium 40 mg p.o. x1 now and check basic metabolic panel and magnesium morning. Continue a/c with Eliquis Subjective Date/time seen: 05/04/22 09:33 Interval history: 61-year-old atrial fibrillation Date of service 05/04/2022: Remains in atrial fibrillation. Heart rate generally controlled except when active. He is still on diltiazem drip and sotalol and unfortunately still has not converted. Review of Systems Constitutional: Constitutional: Reports no additional constitutional complaints Eyes: Eyes: Reports no additional eye complaints ENT: Reports system reviewed and no additional complaints, except as documented Cardiovascular: Cardiovascular: Reports palpitations Respiratory: Respiratory: Reports no additional respiratory complaints Gastrointestinal: Gastrointestinal: Reports no additional gastrointestinal complaints Musculoskeletal: Musculoskeletal: Reports no additional musculoskeletal complaints Neurologic: Reports system reviewed and no additional complaints, except as documented Endocrine: Endocrine: Reports no additional endocrine complaints and Reports palpitations Hematologic/Lymphatic: Hematologic/Lymphatic: Reports no additional hematologic/lymphatic complaints Allergic/Immunologic: Allergic/Immunologic: Reports no additional allergic/immunologic complaints Exam Const: General: comfortable and no acute distress Other: Pleasant overweight gentleman no distress at all with IV diltiazem running HENMT: Mouth: Yes moist mucous membranes Eyes: Sclera: sclerae normal Pupils: Equal, round and reactive pupils present Neck: Neck: supple and no JVD Resp: Effort & Inspection: normal respiratory effort Auscultation: clear to auscultation bilaterally Cardio: Rate: tachycardic Rhythm: abnormal rhythm irregularly irregular GI: Auscultation: normal bowel sounds Skin: General skin exam: normal color Neuro: Cranial nerves: Yes Equal, round and reactive pupils present Extrem: General: normal to inspection Objective Data Vital Signs Vital Signs: Vital Signs - 24 hr 05/03/22 10:41 05/03/22 10:00 05/03/22 12:00 Temperature 36.6 C Pulse Rate 121 H 115 H 108 H Respiratory Rate 16 Blood Pressure 107/71 Pulse Oximetry 95 Oxygen Delivery 05/03/22 12:00 05/03/22 14:00 05/03/22 16:00 Temperature 36.7 C Pulse Rate 108 H 127 H 90 Respiratory Rate 20 Blood Pressure 140/80 Pulse Oximetry 97 Oxygen Delivery 05/03/22 16:00 05/03/22 18:00 05/03/22 20:08 Temperature Pulse Rate 91 92 112 H Respiratory Rate Blood Pressure Pulse Oximetry 96 Oxygen Delivery Room Air 05/03/22 20:24 05/03/22 20:00 05/03/22 23:31 Temperature 36.4 C 36.9 C Pulse Rate 95 92 75 Respiratory Rate 20 20 Blood Pressure 107/87 119/72 Pulse Oximetry 100 100 Oxygen Delivery 05/03/22 23:51 05/03/22 20:00 05/03/22 22:00 Temperature Pulse Rate 79 72 Respiratory Rate 16 Blood Pressure Pulse Oximetry 97 Oxygen Delivery CPAP 05/04/22 00:00 05/04/22 02:00 05/04/22 04:23 Temperature Pulse Rate 85 74 91 Respiratory Rate Blood Pressure Pulse Oximetry Oxygen Delivery 05/04/22 04:00 05/04/22 03:29 05/04/22 04:00 Temperature 36.5 C Pulse Rate 118 H 77 Respiratory Ra
[2022-05-04] MEDS: lisinopriL 20 MG TABLET 40 MG PO (09:42)
[2022-05-04] MEDS: APIXABAN 5 MG TABLET PO ×2 (09:42→20:16)
[2022-05-04] MEDS: SOTALOL HCL 80 MG TABLET PO ×2 (09:42→20:16)
[2022-05-04] MEDS: LORATADINE 10 MG TABLET PO (09:42)
[2022-05-04] MEDS: CHLORTHALIDONE 25 MG TABLET PO (09:43)
[2022-05-04] MEDS: DOCUSATE SODIUM 100 MG CAPSULE PO ×2 (09:43→20:15)
[2022-05-04] MEDS: ATORVASTATIN 10 MG TABLET PO (09:43)
[2022-05-04] MEDS: polyethylene glycoL 3350 17 GM POWD.PACK PO ×2 (09:50→20:17)
[2022-05-04] MEDS: POTASSIUM CHLORIDE 20 MEQ TABLET 40 MEQ PO (09:51)
--- NOTE | 2022-05-04 11:42 | ECG_ITS ---
Measurements Intervals [place] Rate: 82 P: GA: 0 QRS: -54 QRSD: 122 T: 52 QT: 364 QTc: 427 Interpretive Statements ATRIAL FIBRILLATION POSSIBLE RIGHT VENTRICULAR CONDUCTION DELAY [RSR (QR) IN V1/V2] LEFT ANTERIOR FASCICULAR BLOCK [QRS AXIS <= -45, QR IN I, RS IN II] VOLTAGE CRITERIA FOR LVH [MEETS CRITERIA IN ONE OF: R(aVL), S(V1), R(V5), R(V5/V6)+S(V1)] POSSIBLE ANTERIOR MYOCARDIAL INFARCTION , OF INDETERMINATE AGE [30 ms Q WAVE IN V3/V4, OR R < 0.2 mV IN V4] ABNORMAL ECG COMPARED TO ECG 05/03/2022 22:17:11 NO SIGNIFICANT CHANGES Electronically Signed On 05-05-2022 12:29:21 CDT by Christian Buchanan M.D.
[2022-05-04 12:03] LABS: Anion Gap 8 mmol/L (8-16); Blood Urea Nitrogen 16 mg/dL (9-20); Calcium 8.8 mg/dL (8.4-10.2); Carbon Dioxide 27 mmol/L (22-30); Chloride 102 mmol/L (98-107); Estimated CRCL calculation 105 ml/min; Estimated Glomerular Filt Rate > 60; Glucose 172 mg/dL (65-110); Potassium 3.5 mmol/L (3.4-5.0); Sodium 137 mmol/L (137-145)
[2022-05-04 12:19] LABS: Glucose Point of Care 146 mg/dl (65-105)
[2022-05-04 17:01] LABS: Glucose Point of Care 155 mg/dl (65-105)
[2022-05-04 20:06] LABS: Glucose Point of Care 171 mg/dl (65-105)
[2022-05-04] MEDS: TAMSULOSIN HCL 0.4 MG CAPSULE 0.8 MG PO (20:15)
[2022-05-04] MEDS: allopurinoL 100 MG TABLET 200 MG PO (20:16)
[2022-05-04] MEDS: INSULIN GLARGINE (*BKC) 100 UNITS/ML 15 UNITS SUB-Q (20:17)
--- NOTE | 2022-05-04 22:05 | ECG_ITS ---
Measurements Intervals [place] Rate: 79 P: ND: 0 QRS: -53 QRSD: 120 T: 66 QT: 397 QTc: 457 Interpretive Statements ATRIAL FIBRILLATION LEFT ANTERIOR FASCICULAR BLOCK [QRS AXIS <= -45, QR IN I, RS IN II] POSSIBLE LEFT VENTRICULAR HYPERTROPHY [VOLTAGE CRITERIA PLUS LAE OR QRS WIDENING] ABNORMAL ECG COMPARED TO ECG 05/04/2022 12:01:15 NO SIGNIFICANT CHANGES Electronically Signed On 05-05-2022 12:38:08 CDT by Christian Buchanan M.D.
[2022-05-05] VITALS (19 sets, daily range): BP systolic 88–114; BP diastolic 64–83; PULSE 78–96; RESP 11–22; TEMP 36.1–36.9; O2SAT 96–100
[2022-05-05 05:25] LABS: Anion Gap 5 mmol/L (8-16); Blood Urea Nitrogen 18 mg/dL (9-20); Calcium 8.6 mg/dL (8.4-10.2); Carbon Dioxide 30 mmol/L (22-30); Chloride 102 mmol/L (98-107); Estimated CRCL calculation 105 ml/min; Estimated Glomerular Filt Rate > 60; Glucose 124 mg/dL (65-110); Potassium 3.4 mmol/L (3.4-5.0); Sodium 137 mmol/L (137-145)
[2022-05-05 07:57] LABS: Glucose Point of Care 136 mg/dl (65-105)
--- NOTE | 2022-05-05 08:35 | PC.NURSE ---
Patient left floor with chest pain center staff, no complaints of chest pain/shortness of breath. Patient oriented x4.
[2022-05-05] MEDS: POTASSIUM CHLORIDE 20 MEQ TABLET 40 MEQ PO (09:00)
--- NOTE | 2022-05-05 09:09 | PM.IMPN ---
Progress Note: A&P Assessment and Plan (1) Atrial fibrillation with RVR: Code(s): I48.91 - Unspecified atrial fibrillation Status: Acute Assessment and Plan: Cardizem drip weaned off, Cardiology consultation started loading with sotalol as well as anticoagulation with Xarelto, if he chemically converts to normal sinus he can be discharged, if not he will be cardioverted on Thursday. Cardizem drip was weaned off on May 02, restarted on May 03 with continued tachycardia into the 130s 140s, currently running at 5 milligrams/hour, with a heart rate in the 80s. Will decrease dose to 2.5 milligrams/hour and reassess. Would recommend outpatient consultation with Cardiology to discuss ablation in the future as this is now his 2nd episode of AFib with RVR requiring cardioversion. Currently getting cardioversion (2) Obstructive sleep apnea (adult) (pediatric): Code(s): G47.33 - Obstructive sleep apnea (adult) (pediatric) Status: Acute Assessment and Plan: Continue CPAP at night (3) Benign prostatic hyperplasia with urinary frequency: Code(s): N40.1 - Benign prostatic hyperplasia with lower urinary tract symptoms; R35.0 - Frequency of micturition Status: Acute (4) Dyslipidemia: Code(s): E78.5 - Hyperlipidemia, unspecified Status: Acute (5) Essential (primary) hypertension: Code(s): I10 - Essential (primary) hypertension Status: Acute (6) Controlled diabetes mellitus: Code(s): E11.9 - Type 2 diabetes mellitus without complications Status: Acute Assessment and Plan: Accu-Cheks with sliding scale insulin, controlled at home, A1c was 7 on April 04, 2022, all blood sugars under 180 here, well controlled (7) Obesity: Code(s): E66.9 - Obesity, unspecified Status: Acute Subjective Date/time seen: 05/05/22 09:09 Interval history: Patient currently getting cardioversion. No overnight events noted. No fevers. Review of Systems Review of Systems: Unable to obtain as patient is and procedure Exam Narrative: Per the resource efficiency manager today Objective Data Vital Signs Vital Signs: Vital Signs - 24 hr 05/04/22 09:42 05/04/22 12:00 05/04/22 10:00 Temperature 97.2 F L Pulse Rate 85 88 109 H Respiratory Rate 18 Blood Pressure 100/69 Pulse Oximetry 97 Oxygen Delivery 05/04/22 12:00 05/04/22 14:00 05/04/22 16:00 Temperature 97.4 F L Pulse Rate 104 H 99 88 Respiratory Rate 16 Blood Pressure 105/70 Pulse Oximetry 95 Oxygen Delivery 05/04/22 16:00 05/04/22 18:00 05/04/22 10:00 Temperature Pulse Rate 87 115 H 109 H Respiratory Rate Blood Pressure Pulse Oximetry Oxygen Delivery 05/04/22 20:00 05/04/22 20:16 05/04/22 20:18 Temperature 97.8 F Pulse Rate 132 H 88 88 Respiratory Rate 22 H Blood Pressure 113/70 Pulse Oximetry 99 Oxygen Delivery 05/04/22 20:00 05/04/22 20:00 05/04/22 21:19 Temperature Pulse Rate 83 88 90 Respiratory Rate 22 H Blood Pressure Pulse Oximetry 99 Oxygen Delivery Room Air 05/04/22 23:20 05/05/22 00:00 05/05/22 00:00 Temperature 97.6 F Pulse Rate 80 89 89 Respiratory Rate 16 16 Blood Pressure 120/76 Pulse Oximetry 100 100 Oxygen Delivery Room Air 05/05/22 01:52 05/05/22 04:00 05/05/22 04:00 Temperature Pulse Rate 84 90 90 Respiratory Rate 16 Blood Pressure Pulse Oximetry 100 Oxygen Delivery Room Air 05/05/22 04:00 05/05/22 05:34 05/05/22 05:42 Temperature 98.4 F Pulse Rate 80 78 Respiratory Rate 20 Blood Pressure 108/67 Pulse Oximetry 100 96 Oxygen Delivery CPAP 05/05/22 08:06 Temperature 97.0 F L Pulse Rate 92 Respiratory Rate 22 H Blood Pressure 112/77 Pulse Oximetry 99 Oxygen Delivery Intake/Output Intake/Output: Intake & Output 05/02/22 05/03/22 05/04/22 05/05/22 23:59 23:59 23:59 23:59 Intake Total 2500 1170 1460 Output Total 9375 4260
--- NOTE | 2022-05-05 09:24 | SUR.PREOP ---
Dr. Buchanan at bedside explaining details of the procedure. Patient verbalizes understanding
--- NOTE | 2022-05-05 09:24 | WPDMODSED ---
Moderate Sedation Note-Pt Data Patient Data Diagnosis: Atrial fibrillation Present Complaint: Atrial fibrillation Procedure to be performed/Plan: Moderate sedation, electrical cardioversion Allergies Allergy/AdvReac Type Severity Reaction Status Date / Time No Known Allergies Allergy Verified 05/02/22 00:57 Home Medications Medication Instructions Recorded Confirmed Type loratadine 10 mg tablet (Claritin) 10 mg PO DAILY 10/04/20 05/02/22 History tamsulosin 0.4 mg capsule 0.8 mg PO QHS #180 caps 08/14/21 05/02/22 Rx chlorthalidone 25 mg tablet 25 mg PO DAILY #90 tabs 01/01/22 05/02/22 Rx metformin 500 mg tablet,extended 2,000 mg PO QPM #360 tabs 01/01/22 05/02/22 Rx release 24hr lisinopril 40 mg tablet 40 mg PO DAILY #90 tabs 02/20/22 05/02/22 Rx insulin degludec 200 unit/mL (3 40 unit (0.2 mL) subcut DAILY #18 02/25/22 05/02/22 Rx mL) subcutaneous pen (Tresiba mL FlexTouch U-200 insulin) allopurinol 100 mg tablet 200 mg PO DAILY 05/02/22 05/02/22 History atorvastatin 10 mg tablet 10 mg PO DAILY 05/02/22 05/02/22 History dulaglutide 0.75 mg/0.5 mL 1.5 mg subcut WEEKLY 05/02/22 05/02/22 History subcutaneous pen injector (Trulicity) carvedilol phosphate 40 mg 40 mg PO DAILY #90 caps 05/05/22 Rx capsule,[id number] multiphase Current Medications: Active Medications Acetaminophen (Acetaminophen 325 Mg Tablet) 650 mg PO Q4H PRN PRN Reason: Mild Pain (1-3) or Fever Last Admin: 05/02/22 22:29 Dose: 650 mg Allopurinol (Allopurinol 100 Mg Tablet) 200 mg PO HS [facility] Last Admin: 05/04/22 20:16 Dose: 200 mg Apixaban (Apixaban 5 Mg Tablet) 5 mg PO Q12HR [facility] Last Admin: 05/04/22 20:16 Dose: 5 mg Atorvastatin Calcium (Atorvastatin 10 Mg Tablet) 10 mg PO DAILY [facility] Last Admin: 05/04/22 09:43 Dose: 10 mg Chlorthalidone (Chlorthalidone 25 Mg Tablet) 25 mg PO DAILY [facility] Last Admin: 05/04/22 09:43 Dose: 25 mg Dextrose (Dextrose 50% 25 Gm/50 Ml Syringe) 12.5 gm IV PUSH PRN PRN; Protocol PRN Reason: Hypoglycemia Glucagon (Glucagon For Inj 1 Mg Vial) 1 mg IM PRN PRN; Protocol PRN Reason: Hypoglycemia Glucose (Glucose Oral Gel 15 Gm Of Glucse In 37.5 Gm Tube) 15 gm PO PRN PRN; Protocol PRN Reason: Hypoglycemia Dextrose (Dextrose 5% 1,000 Ml) 1,000 mls @ 100 mls/hr IVPB PRN PRN; Protocol PRN Reason: Hypoglycemia Diltiazem HCl (Cardizem 100 Mg/100 Ml) 100 mg in 100 mls @ 2.5 mls/hr IV CONT .Q24H [facility] Last Admin: 05/04/22 20:18 Dose: 2.5 mg/hr, 2.5 mls/hr Insulin Glargine (Insulin Glargine (*Bkc) 100 Units/Ml) 32 units 0.25 units/kg (32 units) SUB-Q [facility] Last Admin: 05/03/22 21:26 Dose: 32 units Lisinopril (Lisinopril 20 Mg Tablet) 40 mg PO DAILY [facility] Last Admin: 05/04/22 09:42 Dose: 40 mg Loratadine (Loratadine 10 Mg Tablet) 10 mg PO DAILY [facility] Last Admin: 05/04/22 09:42 Dose: 10 mg Perflutren Lipid Microsphere (Perflutren Lipid Microspheres 1.5 Ml Vial Diluted To 10 Ml Total Volume) 0 ml IV PUSH ONCE PRN; Protocol PRN Reason: adequate visualization Polyethylene Glycol (Polyethylene Glycol 3350 17 Gm Powd.Pack) 17 gm PO Q12HR [facility] Last Admin: 05/04/22 20:17 Dose: 17 gm Sotalol HCl (Sotalol Hcl 80 Mg Tablet) 80 mg PO Q12HR [facility] Last Admin: 05/04/22 20:16 Dose: 80 mg Tamsulosin HCl (Tamsulosin Hcl 0.4 Mg Capsule) 0.8 mg PO [facility] Last Admin: 05/04/22 20:15 Dose: 0.8 mg Sedation/Anesthesia: No previous sedation/anesthesia problems (including family history). [facility] Past Medical History Medical History Benign prostatic hyperplasia with urinary frequency Colon cancer screening Controlled diabetes mellitus Dyslipidemia Essential (primary) hypertension History of atrial flutter Obesity Obstructive sleep apnea (adult) (pediatric) Single current episode of major depressive disorder Surgical History Surgical History History of pilonida
--- NOTE | 2022-05-05 09:36 | P.PCNCVR_ITS ---
Cardioversion Cardioversion Date of procedure: 05/05/22 Procedure: 1. Moderate sedation 2. Elective electrical cardioversion Pre-op diagnosis: Atrial fibrillation Post-op diagnosis: Same Indications: Atrial fibrillation Description of procedure: After establishing status lunchroom monitor, pulse oxygenation and serial blood pressure assessments, patient agreeable via verbal and written informed consent. Risks discussed included skin irritation or burn, stroke, adverse reaction to anesthesia, shocking into more problematic heart rhythm. After time-out was taken procedure was initiated. Procedure start time 9:27 a.m. Procedure stop time 9:34 a.m. Medications were administered patient was monitored by Christine Thomas Complications: None Blood loss: None Procedure: Atrial fibrillation was confirmed. Diltiazem drip was discontinued. Potassium level was slightly low initially and 40 mEq of potassium chloride were provided at presentation to the chest pain center. Two hundred joules of biphasic synchronized energy was utilized to restore sinus rhythm from atrial fibrillation. Sedation: A total of 2 mg Versed and 50 mcg of fentanyl were given as well as 40 mEq of p.o. potassium chloride prior to the procedure Findings: Successful denominational of sinus rhythm using 200 joules of synchronized biphasic energy Conclusion: Successful denominational of sinus rhythm using 200 joules of biphasic synchronized energy Moderate sedation
--- NOTE | 2022-05-05 09:38 | ECG_ITS ---
Measurements Intervals [place] Rate: 77 P: 24 MS: 192 QRS: -56 QRSD: 117 T: 39 QT: 397 QTc: 451 Interpretive Statements SINUS RHYTHM PATTERN CONSISTENT WITH PULMONARY DISEASE LEFT ANTERIOR FASCICULAR BLOCK [QRS AXIS <= -45, QR IN I, RS IN II] MODERATE VOLTAGE CRITERIA FOR LVH, CONSIDER NORMAL VARIANT [MEETS CRITERIA IN ONE OF: R(aVL), S(V1), R(V5), R(V5/V6)+S(V1)] COMPARED TO ECG 05/04/2022 21:38:52 SINUS RHYTHM REPLACES ATRIAL FIBRILLATION Electronically Signed On 05-05-2022 16:22:10 CDT by Todd Olsen M.D.
--- NOTE | 2022-05-05 10:58 | SUR.PHASEII ---
Patient taken back to Room 200. Report given to Michelle. Patient given instruction to monitor for stoke s/s for at least one month and to make sure he replenishes his fluid after moderate activity. Pt acknowledge that he understands.
--- NOTE | 2022-05-05 11:03 | PC.NURSE ---
Patient returned to 200 from cardioversion. Patient oriented x 4, no complaints of chest pain/shortness of breath. Marium sinus rhythm noted on monitor.
[2022-05-05 11:19] LABS: Glucose Point of Care 139 mg/dl (65-105)
[2022-05-05] MEDS: polyethylene glycoL 3350 17 GM POWD.PACK PO (13:53)
[2022-05-05] MEDS: ATORVASTATIN 10 MG TABLET PO (13:54)
[2022-05-05] MEDS: lisinopriL 20 MG TABLET 40 MG PO (13:54)
[2022-05-05] MEDS: SOTALOL HCL 80 MG TABLET PO (13:54)
[2022-05-05] MEDS: APIXABAN 5 MG TABLET PO (13:54)
[2022-05-05] MEDS: CHLORTHALIDONE 25 MG TABLET PO (13:54)
[2022-05-05] MEDS: LORATADINE 10 MG TABLET PO (13:55)
--- NOTE | 2022-05-05 13:59 | PM.DS ---
DS: Admitting Diagnosis Discharge Date May 05, 2022 Admitting Diagnosis AFib with RVR DS: Discharge Diagnosis Discharge Diagnosis (1) Atrial fibrillation with RVR: Code(s): I48.91 - Unspecified atrial fibrillation Status: Acute (2) Obstructive sleep apnea (adult) (pediatric): Code(s): G47.33 - Obstructive sleep apnea (adult) (pediatric) Status: Acute (3) Benign prostatic hyperplasia with urinary frequency: Code(s): N40.1 - Benign prostatic hyperplasia with lower urinary tract symptoms; R35.0 - Frequency of micturition Status: Acute (4) Dyslipidemia: Code(s): E78.5 - Hyperlipidemia, unspecified Status: Acute (5) Essential (primary) hypertension: Code(s): I10 - Essential (primary) hypertension Status: Acute (6) Controlled diabetes mellitus: Code(s): E11.9 - Type 2 diabetes mellitus without complications Status: Acute (7) Obesity: Code(s): E66.9 - Obesity, unspecified Status: Acute DS: Summary Hospital Course Reason for hospitalization: AFib with RVR Hospital Course: 61-year-old male with past medical history significant for hypertension, hyperlipidemia, diabetes, BPH denies eyes presenting with palpitations. He was found to have AFib with RVR. He previously had another episode of AFib that required cardioversion and did not respond to medications. Cardiology was consulted and recommended anticoagulation and attempted chemical cardioversion. They started him on a Cardizem drip, this is attempt to be weaned and he was started on sotalol as well. Dosages were increased, patient was rate controlled but remained in AFib. While he was here, he used CPAP at night the need a little bit of titration but then he was able to use affectively. Other home medications were continued. Cardioversion was performed, patient now in normal sinus rhythm. He will be discharged in good condition with close outpatient follow-up by Cardiology and Primary Care. Status at Discharge Functional status at discharge: independent ambulation Overall status at discharge: patient is back to baseline Time Spent with Patient Time attestation: Total time spent providing and/or coordinating discharge services: Time spent: Greater than 30 minutes DS: Data Data Completed and Pending Labs on day of discharge: Labs from last 24 hours 05/05/22 05/05/22 05/05/22 11:04 07:39 04:23 Sodium 137 Potassium 3.4 Chloride 102 Carbon Dioxide 30 Anion Gap 5 L BUN 18 Creatinine 0.90 Estim Creat Clear Calc 105 Estimated GFR > 60 Glucose 124 H POC Capillary Glucose 139 H 136 H Calcium 8.6 Magnesium 2.0 05/04/22 05/04/22 19:39 16:58 Sodium Potassium Chloride Carbon Dioxide Anion Gap BUN Creatinine Estim Creat Clear Calc Estimated GFR Glucose POC Capillary Glucose 171 H 155 H Calcium Magnesium Discharge Plan Discharge Attending physician on discharge: Nimco Ramirez Consulting providers: Christian Buchanan Discharging Clinician: Nimco Ramirez Patient Disposition: Home, Self-Care Activity: as tolerated Diet: heart healthy and diabetic Patient Instructions: Antibiotic Form Stand Alone Forms: General Discharge Information Follow-up/Referrals: Chris Sanchez MD [Primary Care Provider] - Christian Buchanan MD [Physician] - Discharge Medications: New Eliquis 5 mg Tablet 5 mg PO Q12HR Qty: 60 0RF Continued tamsulosin 0.4 mg capsule 0.8 mg PO QHS Qty: 180 3RF loratadine [Claritin] 10 mg Tablet 10 mg PO DAILY Trulicity 0.75 mg/0.5 mL pen injector 1.5 mg SUBCUT WEEKLY atorvastatin 10 mg tablet 10 mg PO DAILY allopurinol 100 mg tablet 200 mg PO DAILY chlorthalidone 25 mg tablet 25 mg PO DAILY Qty: 90 2RF metformin 500 mg tablet extended release 24hr 2,000 mg PO QPM Qty: 360 3RF lisinopril 40 mg tabl
--- NOTE | 2022-05-06 12:07 | WPDCARDVER ---
Cardioversion Cardioversion Date of procedure: 05/06/22 Procedure: Electrical cardioversion Moderate sedation Pre-op diagnosis: Atrial fibrillation Post-op diagnosis: Same Indications: Atrial fibrillation Description of procedure: After discussing the risks, benefits and alternatives of the procedure patient agreeable via verbal and written informed consent. Risks discussed included shocking into more problematic heart rhythm, , stroke, skin irritation or burn, adverse reaction anesthesia. After establishing continuous telemetry monitoring, pulse oxygenation and serial blood pressure assessments time-out was taken and procedure was started. Complications: None Blood loss: None Procedure start time: 9:27 a.m. Procedure stop time 9:34 a.m. Date of procedure 05/05/2022 Sedation: 2 mg of Versed and 50 mcg of fentanyl Forty mEq of p.o. potassium given prior to the procedure because of hypokalemia Medications were administered and patient was monitored by Christine Thomas Findings: Successful protestant of sinus rhythm using 200 joules of synchronized biphasic energy Conclusion: 1. Successful protestant of sinus rhythm using 200 joules of synchronized biphasic energy 2 Moderate sedation
== END 2022-05-05 15:35 | disposition home or self-care (01) | DRG 310 ==
LOC: ANHED 05-02 03:14 → ANHIMU 05-02 05:00
PROVIDERS: Internal Medicine Cardiovascular Disease; Nurse Practitioner; Admitting Provider Internal Medicine; Emergency Provider Emergency Medicine; PCP Family Medicine; Visit Provider Student in an Organized Health Care Education/Training Program
PROC: 5A2204Z Restoration of Cardiac Rhythm, Single (ICD-10-PCS; principal; 2022-05-05 09:00)
DX: I48.91 Unspecified atrial fibrillation (principal); E86.0 Dehydration; N40.1 Benign prostatic hyperplasia with lower urinary tract symptoms; R35.0 Frequency of micturition; G47.33 Obstructive sleep apnea (adult) (pediatric); I10 Essential (primary) hypertension; E78.5 Hyperlipidemia, unspecified; E11.9 Type 2 diabetes mellitus without complications; F32.9 Major depressive disorder, single episode, unspecified; E66.9 Obesity, unspecified; Z68.37 Body mass index [BMI] 37.0-37.9, adult
CPT/HCPCS: 36415; 71046; 80048; 80053; 82948; 83690; 83735; 84484; 85025; 85027; 85610; 85730; 92960; 93005; 96361; 96365; 96366; 96375; 99285; A9270; C8929; G0378; J1815; J2250; J2310; J3010; J7030; J7040; Q9957

== ENCOUNTER → 2023-05-05 14:04 | Outpatient (CLI) | payer OTHER, SELFPAY ==
--- NOTE | ~2023-05-05 | XR_ITS ---
[id number] 05/05/2023 14:18 Indication: Right knee pain Procedure: 2 views right knee Comparison: No prior studies for comparison. Findings: Moderate-severe tricompartment osteoarthritis. No fracture or traumatic malalignment. No si gnificant joint effusion. No foreign bodies. Impression: 1: Moderate-severe tricompartment osteoarthritis of the right knee. Reviewed, dictated and finalized at location L. Impression: 1: Moderate-severe tricompartment osteoarthritis of the right knee.
== END ==
PROVIDERS: PCP Family Medicine; Visit Provider Family Medicine
DX: M17.11 Unilateral primary osteoarthritis, right knee (principal)
CPT/HCPCS: 73560